=== PATIENT | female | born 1945 | race Caucasian/White ===

== ENCOUNTER 2016-10-22 17:53 | Emergency (ER) | payer MEDICARE ==
[~2016-10-22 17:53] MED LIST: NORVASC5 M2 PO; PRAVASTATIN SOD40 M1 PO; PRINIVIL10 M1 PO; [UNRECOGNIZED DRUG - OTHER] PO
[2016-10-22] MEDS ORDERED: [UNRECOGNIZED DRUG - REMARK] (19:38)
[2016-10-22] MEDS ORDERED: [UNRECOGNIZED DRUG - OTHER] PO (19:39)
== END 2016-10-22 20:55 ==
LOC: EDMED 17:53
PROC: 0HQ1XZZ Repair Face Skin, External Approach (ICD-10-PCS; principal; 2016-10-22)
DX: S01.81XA Laceration without foreign body of other part of head, initial encounter (principal); I10 Essential (primary) hypertension; Z87.891 Personal history of nicotine dependence; Z79.82 Long term (current) use of aspirin; Z79.899 Other long term (current) drug therapy; W01.198A Fall on same level from slipping, tripping and stumbling with subsequent striking against other object, initial encounter; Y93.01 Activity, walking, marching and hiking; Y92.410 Unspecified street and highway as the place of occurrence of the external cause; Y99.8 Other external cause status